=== PATIENT | female | born 1965 | race Two or more races ===

== ENCOUNTER 2024-10-29 12:27 | Emergency (ER) | payer OTHER ==
[~2024-10-29] VITALS: Ht 154.9 cm; Wt 62.8 kg
--- NOTE | 2024-10-29 13:23 | DVH ---
CLINICAL INDICATION: RIGHT ELBOW TECHNIQUE: 2 radiographic views of the right elbow were obtained. Comparison: None FINDINGS/IMPRESSION: There is no evidence of acute fracture or dislocation. Mild degenerative changes of the elbow. The alignment is anatomical. There is no radiopaque foreign body.
--- NOTE | 2024-10-29 13:25 | DVH ---
CLINICAL INDICATION: RIGHT HAND TECHNIQUE: 2 radiographic views of the right hand were obtained. Comparison: None FINDINGS/IMPRESSION: Lucency with bony irregularity over the posterior distal radius on the lateral view without significa nt adjacent soft tissue edema. Recommend correlation with point tenderness for possible nondisplaced fracture. Otherwise, no evidence for acute traumatic fractures or dislocations. The visualized joint space is well maintained. The alignment is anatomical. There is no radiopaque foreign body.
--- NOTE | 2024-10-29 14:12 | ED.PDOC ---
Musculoskeletal HPI Comments 59Y F presents to ED for chief complaint RUE pain s/p fall at work. Pt states she slipped and fell while working and landed on her right side. Pt is left- handed. Chief Complaint: Upper Extremity Time Seen by MD: 13:21 Primary Care Provider: DR. BANEGAS Reviewed Notes: Nurses Notes, Medications, Allergies Allergies: Coded Allergies: Morphine (Verified Allergy, Severe, 10/29/24) Penicillins (Verified Allergy, Severe, 10/29/24) Codeine (Verified Allergy, Unknown, 03/24/16) Information Source: Patient Mode of Arrival: Ambulatory Location: Right Extremity Location: Arm, Forearm, Wrist Timing: Hours Severity: Mild Able to Move Extremity: Yes Bear Weight: Limited Pain: Mild Hand Dominance: Left Mechanism: Unknown Circumstances: Work Related Onset of Symptoms: After Trauma Symptoms: Swelling, Pain DVT Risk Factors: NONE Associated signs and symptoms: Arm pain, Wrist pain, Forearm pain Past Medical History PAST MEDICAL HISTORY: Denies Surgical History: Denies all surgeries DEPLOYMENT ENGINEER History: No Pertinent DEPLOYMENT ENGINEER History Family History Family History: Unknown Social History Smoker: Non-Smoker Alcohol: Denies ETOH Use Drugs: Denies Drug Use Lives In: Home Constitutional: denies: chills, diaphoresis, fatigue, fever, malaise, sweats, weakness, others EENTM: denies: blurred vision, double vision, ear bleeding, ear discharge, ear drainage, ear pain, ear ringing, eye pain, eye redness, hearing loss, mouth pain, mouth swelling, nasal discharge, nose bleeding, nose congestion, nose pa in, photophobia, tearing, throat pain, throat swelling, voice changes, others Respiratory: denies: cough, hemoptysis, orthopnea, SOB at rest, shortness of breath, SOB with excertion, stridor, wheezing, others Cardiovascular: denies: chest pain, dizzy spells, diaphoresis, Dyspnea on exertion, edema, irregular heart beat, left arm pain, lightheadedness, palpitations, PND, syncope, others Gastrointestinal: denies: abdomen distended, abdominal pain, blood streaked bowels, constipated, diarrhea, dysphagia, difficulty swallowing, hematemesis, melena, nausea, poor appetite, poor fluid intake, rectal bleeding, rectal pain, vomiting, others Genitourinary: denies: abnormal vagina bleeding, burning, dyspareunia, dysuria, flank pain, frequency, hematuria, incontinence, pain, , vagina discharge, urgency, others Neurological: denies: dizziness, fainting, headache, left sided numbness, left sided weakness, numbness, paresthesia, pre-existing deficit, right sided numbness, right sided weakness, seizure, speech problems, tingling, tremors, weakness, others Musculoskeletal: reports: others (RUE pain); denies: back pain, gout, joint pain, joint swelling, muscle pain, muscle stiffness, neck pain Integumetry: denies: bruises, change in color, change in hair/nails, dryness, laceration, lesions, lumps, rash, wounds, others Allergic/Immunocompromised: denies: Difficulty Healing, Frequent Infections, Hives, Itching, others Hematologic/Lymphatic: denies: anemia, blood clots, easy bleeding, easy bruising, swollen glands, others Endocrine: denies: excessive hunger, excessive sweating, excessive thirst, excessive urination, flushing, intolerance to cold, intolerance to heat, unexplained weight gain, unexplained weight loss, others Psychiatric: denies: anxiety, bipolar disorder, depression, hopeless, panic disorder, schizophrenia, sleepless, suicidal, others All Other Systems: Reviewed and Negative Physical Exam General Appearance: No Apparent Distress, Normal HEENT: Normal ENT Inspection, Pharynx Normal, TMs Normal Neck: Full Range of Motion, Non-Tender, Normal, Normal Inspection Respiratory: Chest Non-Tender, Lungs Clear, No Accessory Muscle Use, No Respira tory Distress, Normal Breath Sounds Cardiovascular: No Edema, No JVD, No Murmur, No Gallop, Normal Peripheral Pulses, Regular Rate/Rhythm Breast Exam: Deferred Gastrointestinal: No Organomegaly, Non Tender, No Pulsatile Mass, Normal Bowel Sounds, Soft Genitalia: Deferred Pelvic: Deferred Rectal: Deferred Extremities: No calf tenderness, Normal capillary refill, Normal inspection, Normal range of motion, Non-tender, No pedal edema Musculoskeletal : Location: Right Extremity Location: Arm, Forearm, Wrist Apperance: Swelling, Limited ROM, Tenderness: Mild Neurologic: Alert, new account interviewer II-XII nml as Tested, No Motor Deficits, Normal Affect, Normal Mood, No Sensory Deficits Cerebellar Function: NOT DONE Reflexes: NOT DONE Skin: Dry, Normal Color, Warm Lymphatic: No Adenopathy Was a procedure done? Was a procedure done?: No Differential Diagnosis EXT Differential Diagnosis: Fracture, Sprain, Dislocation, Contusion, Strain X-Ray, Labs, Meds, VS Vital Signs Date Time Temp Pulse Resp B/P (MAP) Pulse Ox O2 Delivery O2 Flow Rate FiO2 10/29/24 12:36 98.1 67 16 150/86 (107) [address] [id number] Ph: [phone] DIAGNOSTIC IMAGING Diagnostic Imaging Report : [id number] Signed PATIENT: VIRIDIANA XIE ACCT: [id number] UNIT: [id number] : 1965 LOC: ER ROOM / BED: / AGE / SEX: 59 / F ADM STATUS: REG ER SERVICE 1234 ORDERING PHYSICIAN: RICHARD SPICER NP PROCEDURE(s): RHAN2 - R HAND 2 VIEW XRAY REASON: RIGHT HAND ORDER NUMBER(s): [id number], ACCESSION NUMBER(s): [id number] CLINICAL INDICATION: RIGHT HAND TECHNIQUE: 2 radiographic views of the right hand were obtained. Comparison: None FINDINGS/IMPRESSION: Lucency with bony irregularity over the posterior distal radius on the lateral view without significant adjacent soft tissue edema. Recommend correlation with point tenderness for possible nondisplaced fracture. Otherwise, no evidence for acute traumatic fractures or dislocations. The visualized joint space is well maintained. The alignment is anatomical. There is no radiopaque foreign body. ATED BY: MARII JARRETT DO DICTATED DATE/TIME: 10/29/24 132 SIGNED BY: MARII JARRETT DO SIGNED DATE/TIME: 10/29/24 132 CC: [address] [address] Ph: [phone] DIAGNOSTIC IMAGING Diagnostic Imaging Report : [id number] Signed PATIENT: VIRIDIANA XIE ACCT: [id number] UNIT: [id number] : 1965 LOC: ER ROOM / BED: / AGE / SEX: 59 / F ADM STATUS: REG ER SERVICE 1234 ORDERING PHYSICIAN: RICHARD SPICER NP PROCEDURE(s): RELB - R ELBOW 2V XRAY REASON: RIGHT ELBOW ORDER NUMBER(s): [id number], ACCESSION NUMBER(s): [id number] CLINICAL INDICATION: RIGHT ELBOW TECHNIQUE: 2 radiographic views of the right elbow were obtained. Comparison: None FINDINGS/IMPRESSION: There is no evidence of acute fracture or dislocation. Mild degenerative changes of the elbow. The alignment is anatomical. There is no radiopaque foreign body. ATED BY: MARII JARRETT DO DICTATED DATE/TIME: 10/29/24 1321 SIGNED BY: MARII JARRETT DO SIGNED DATE/TIME: 10/29/24 1321 CC: Time of 1ST Reevaluation: 13:51 Reevaluation 1ST: Unchanged Patient Education/Counseling: Diagnosis, Treatment Family Education/Counseling: No Family Present Departure 1 Departure Time of Disposition: 14:40 (Concern for distal radius fracture. Will discharge with a splint and outpatient follow up.) Impression: Primary Impression: Distal radial fracture Qualified Codes: S52.501A - Unspecified fracture of the lower end of right radius, initial encounter for closed fracture Disposition: 01 HOME / SELF CARE / HOMELESS Condition: Stable Referrals: ADAL CHANDRA MD Additional Instructions: You have a subtle fracture of your right distal radius. You were placed in a splint. You were referred to orthopedic surgery. Please call for an appointment next week. For pain you can take the followinam: Ibuprofen 400mg with food Noon: Acetaminophen 1000mg 4pm: Ibuprofen 400mg with food 8pm: Acetaminophen 1000mg You should follow up with your regular doctor within one week to ensure you are doing better. If your symptoms worsen or you have any other concerns then please return to the ER. Discharged With: Self Critical Care Note Critical Care Time?: No Stability Stability form required: No Heart Score Heart Score: Heart Score Response (Comments) Value History N/A 0 EKG N/A 0 Age N/A 0 Risk Factors N/A 0 Troponin N/A 0 Total 0 I personally scribed for LUCY MALCOLM MD ([email or web address]) on 10/29/24 at 14:12. Electronically submitted by Marii Kevin ([facility]). I personally scribed for LCUY MALCOLM MD ([email or web address]) on 10/29/24 at 14:21. Electronically submitted by Marii Kevin ([facility]). LUCY MALCOLM MD Oct 29, 2024 14:12
[2024-10-29] MEDS: KETOROLAC TROMETH 30 MG/ML 1ML VIAL IM ONE (15:01)
[2024-10-29 15:24] VITALS: BP 153/88; PULSE 70; RESP 17; TEMP 98.3; O2SAT 100
== END 2024-10-29 15:52 | disposition home or self-care (01) ==
LOC: ER 12:27
DX: S52.501A Unspecified fracture of the lower end of right radius, initial encounter for closed fracture (principal); Z88.0 Allergy status to penicillin; Z88.5 Allergy status to narcotic agent; W01.0XXA Fall on same level from slipping, tripping and stumbling without subsequent striking against object, initial encounter; Y93.89 Activity, other specified; Y92.89 Other specified places as the place of occurrence of the external cause; Y99.8 Other external cause status; Y92.69 Other specified industrial and construction area as the place of occurrence of the external cause
CPT/HCPCS: 29125; 73070; 73120; 96372; 99284; J1885